=== PATIENT | male | born 1955 | race Caucasian/White ===

== ENCOUNTER → 2018-10-28 | Outpatient (CLI) | payer OTHER ==
[~2018-10-28] MED LIST: ACET-1966 PO; FAMO20TA28 PO; FLUT16SP19 NS; LORA10CA3 PO; PRED20TA6 PO
== END ==
LOC: LAB 11:37
PROVIDERS: ATTEND Otolaryngology
DX: H93.19 Tinnitus, unspecified ear (principal)
CPT/HCPCS: 36415; 82565

== ENCOUNTER → 2018-11-03 | Outpatient (CLI) | payer OTHER | LOC: AUD 09:00 | PROVIDERS: ATTEND Otolaryngology | DX: H93.19 Tinnitus, unspecified ear (principal) | CPT/HCPCS: 92557; 92570 ==

== ENCOUNTER → 2018-11-07 | Outpatient (CLI) | payer OTHER ==
[~2018-11-07] MED LIST changes: +GADOBENATE 529MG/1ML 15ML VIAL IVP ONE
--- NOTE | 2018-11-07 09:22 | RADIOLOGY IMAGING REPORT ---
FACILITY: [facility] PATIENT NAME: Marques Rebolledo : 1955 MR: [id number] V: [id number] EXAM DATE: ORDERING PHYSICIAN: CLINT HIDALGO TECHNOLOGIST: Location: [facility] Patient: Marques Rebolledo : 1955 Visit/Account:[id number] Date of Sevice: 11/07/2018 EXAMINATION: MRI brain without IV contrast MRI brain with IV contrast, detailed IACs HISTORY: Asymmetrical sensorineural hearing loss, dizziness, tinnitus of both ears. COMPARISON: None. TECHNIQUE: Multi-planar, multi-sequence brain MRI was performed before and after IV gadolinium. Thin section imaging was performed in the axial and coronal planes centered on the IACs. CONTRAST: 15 mL of IV MultiHance gadolinium. FINDINGS: IAC detailed study: Brain stem: Negative. Cerebellopontine angles: Negative. IACs/CN VII and VIII: There is no filling defect in either internal auditory canal. Inner ear: Negative. Middle ear: Negative. Mastoids/petrous apices: Negative. Rest of brain: Brain volume: Normal. Sagittal midline structures: Normal. Ventricles: Normal. Acute ischemic changes: No diffusion restriction present to suggest acute ischemia. Hemorrhage: None. Masses/edema: None. Enhancement: There is no abnormal enhancement in the posterior fossa. Stiles-white: Negative. White matter: Normal. Vessels: Normal. Extra-axial: Normal. Calvarium/scalp: Negative. Skull base: Negative. Visualized sinuses/orbits: Minimal mucosal thickening in the bilateral ethmoid air cells. There is m ild nasal septal deviation to the right. Visualized upper neck: Negative. IMPRESSION: 1. No posterior fossa mass lesion or abnormal enhancement. 2. No acute infarct, hemorrhage or intracranial mass lesion. Report Dictated By: Eryn Sweet MD at 11/07/2018 9:11 AM Report E-Signed By: Eryn Sweet MD at 11/07/2018 9:17 AM [id number]
== END ==
LOC: MRI 01:00
PROVIDERS: ATTEND Otolaryngology
DX: J34.2 Deviated nasal septum (principal)
CPT/HCPCS: 70553; A9577